=== PATIENT | male | born 1960 | race Caucasian/White ===

== ENCOUNTER 2025-08-17 06:13 | Day surgery (SDC) | payer BC, SELFPAY | END 2025-08-17 10:30 | disposition home or self-care (01) | LOC: GI 06:13 | PROVIDERS: ATTENDING PHYSICIAN Internal Medicine Gastroenterology | DX: Z12.11 Encounter for screening for malignant neoplasm of colon (principal); K64.8 Other hemorrhoids; K63.5 Polyp of colon | CPT/HCPCS: 45385; 88305 ==

== ENCOUNTER → 2025-10-02 09:56 | Outpatient (REF) | payer BC, SELFPAY | LOC: RAD 09:56 | PROVIDERS: ATTENDING PHYSICIAN Student in an Organized Health Care Education/Training Program; REFERRING PHYSICIAN Specialist | DX: M25.511 Pain in right shoulder (principal) | CPT/HCPCS: 73030 ==

== ENCOUNTER 2025-10-12 06:11 | Day surgery (SDC) | payer BC, SELFPAY ==
[2025-10-12] VITALS (12 sets, daily range): BP systolic 118–181; BP diastolic 74–103; BMI 25.7
--- NOTE | 2025-10-12 10:26 | HPS.HSE ---
Family Physician
-
Family Physician: NO INTERVIEW UNKNOWN
Chief Complaint
-
Admission after bleeding during colonoscopy
History of Present Illness
65 y/o male with past medical history of left-sided testicular cancer (status post orchiectomy many years ago), asthma (controlled without any medications) and hypertension, is being admitted after intraprocedural hemorrhage during colonoscopy after
resection of 25 mm polyp in the cecum on 10/12/25. When patient was seen in the same day surgery unit, he reported some nausea, but denied fever, chest pain, SOB, abdominal pain, or any other new symptoms or complaints.
Medical History
Past Medical History
Past Medical History: Reports Other (As per HPI above)
Past Surgical History: Reports Other (Orchiectomy)
Social History
Tobacco: Non-smoker
Alcohol: None
Drug: None
Family History
Family History: Not pertinent
Allergies / Home Medications
Allergies reflects when Allergies were last updated in [facility].
Home Medications with original date entered in [facility]
Allergy/Medication List:
Allergies
Allergy/AdvReac Type Severity Reaction Status Date / Time
No Known Allergies Allergy Verified 10/12/25 07:34
Home Medications
lisinopril 5 mg tablet 5 mg PO DAILY 10/12/25
Review of Systems
-
A 12 point ROS was completed and negative except as noted: Yes
Physical Exam
Vital Signs
Vital Signs
Temp Pulse Resp BP Pulse Ox
98.5 F 66 15 158/94 100
10/12/25 07:38 10/12/25 10:02 10/12/25 10:02 10/12/25 10:02 10/12/25 10:02
Physical Exam
General: No Apparent Distress, Comfortable and Conversant
HEENT: NormoCephalic and Moist mucous membranes
Respiratory: Clear
Cardiac: S1/S2 and Regular Rhythm
GI: Soft, Non Tender and Normal Bowel Sounds
Musculoskeletal: No Cyanosis and No Edema
Skin: Warm and Dry
Neuro: Awake, Alert and Nonfocal/grossly intact
Psych: Calm and Intact Judgment/Insight
Impression/Plan
-
Assessment/Plan
Status post intraprocedural hemorrhage during colonoscopy after resection of 25 mm polyp in the cecum on 10/12/25
-Hgb stable after procedure
-Per my [place] Text communication with Dr. Erazo, patient can be started on regular diet and oral medications
-Monitor CBC and vital signs
-Follow pathology results outpatient
-Per GI, repeat colonoscopy in 6 months for surveillance by the referring physician after piecemeal polypectomy.
Hypertensive Urgency
-BP in the SDS unit post-colonoscopy was 180s/90s
-Patient stated that he had not been taking his home Lisinopril for a few days because he forgot
-Resume Lisinopril and low sodium diet
Hemorrhoids
-Will need high fiber diet
History of left-sided testicular cancer (status post orchiectomy many years ago)
History of asthma (controlled without any medications)
-Stable; continue to monitor
DVT Prophylaxis: SCDs. No pharmacologic DVT prophylaxis given bleeding during colonoscopy.
Code Status: Full Code
[2025-10-12] MEDS: ZOFRAN 4 MG IV (11:17)
--- NOTE | 2025-10-12 13:20 | PTCARENOTE ---
Patient admitted from same day surgery post colonoscopy after he had some bleeding following polyp removal.The patient is alert and oriented.He denies any pain.Vital signs are stable.The patient is in his bed with the call vital in reach.His is
also at the bedside.
[2025-10-12 14:01] LABS: Hematocrit 39.3 % (39.0-52.0); Hemoglobin 13.5 g/dL (13.0-18.0); Mean Corp Hgb Conc. 34.4 g/dL (33.0-37.0); Mean Corpuscular Volume 94.9 fL (80.0-94.0); Platelet Count 172 10^3/uL (130-400); Red Cell Dist. Width 12.6 % (11.5-14.5)
--- NOTE | 2025-10-12 14:04 | CON.GI ---
Consultation
-
Date/Time Consultation Requested: 10-12-25
Date/Time Consultation Performed: 10-12-25
Requesting Provider: Dr. Luis M Fraga
Performing Provider: Dr. Darleen Fermin
Reason for Consultation: Post colonoscopy polypectomy, large polyp removal, bleeding
Medical History
Chief Complaint / HPI
Chief Complaint: Intraprocedural hemorrhage
History of Present Illness:
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
colonoscopy on 07-28-25 when he was found to have a 25 mm polyp in the cecum. He subsequently underwent therapeutic colonoscopy for polypectomy of the large cecal polyp on 10-12-25. During the procedure, there was significant hemorrhage following
endoscopic mucisal resection. Hemostasis was achieved with epinephrine, hot biopsy, coag grasper and four hemostatic clips. There was no bleeding at the end of the procedure, and he remained hemodynamically stable throughout. He was admitted for
overnight observation. He has had 1 bowel movement after the procedure which was bloody with some clots. H&H stable post-procedure. Of note, he came off warfarin a couple of months ago and is not on any anticoagulation.
Past Medical History
Past Medical History: Cancer (seminoma), HTN, Hypercholesterolemia and Other (extensive DVT suspected secondary to long-term testosterone use)
Past Surgical History: Urological (unilateral orchiectomy)
Social History
Tobacco: Non-Smoker
Alcohol: Occasional
Drug: None
Employment: Employed
Family History
Family History: Reviewed & Not Pertinent
Allergies / Home Medications
Allergy/AdvReac Type Severity Reaction Status Date / Time
No Known Allergies Allergy Verified 10/12/25 07:34
�Medication �Instructions �Recorded
lisinopril 5 mg tablet 5 mg PO DAILY 10/12/25
Review of Systems
-
History Source: Patient
All other systems: A 12 pt ROS was Negative except as stated above in HPI
Vital Signs
Temp Pulse Resp BP Pulse Ox
97.5 F 67 16 128/83 96
10/12/25 13:19 10/12/25 13:19 10/12/25 13:19 10/12/25 13:19 10/12/25 13:19
Physical Exam
Exam
General: No Apparent Distress and Comfortable
HEENT: Normocephalic, Anicteric, Moist Mucous Membranes and Atraumatic
Respiratory: Clear and Non Labored Respirations
Cardiac: S1/S2 and Regular Rhythm
GI: Soft, Non Tender, Non Distended and Normal Bowel Sounds; Negative Organomegaly
Genito-urinary: No Costovertebral Tender
Musculoskeletal: No Clubbing, No Cyanosis and No Edema
Neuro: Awake, Alert, Oriented and Nonfocal/Grossly Intact
Psych: Calm
Results
WBC 5.8 10^3/uL (4.8-10.8) 10/12/25 13:54
Hgb 13.5 g/dL (13.0-18.0) 10/12/25 13:54
Hct 39.3 % (39.0-52.0) 10/12/25 13:54
MCV 94.9 fL (80.0-94.0) H 10/12/25 13:54
Plt Count 172 10^3/uL (130-400) 10/12/25 13:54
Prior GI Procedures:
Endoscopy:
04-12-12:
- Normal esophagus.
- Bile gastritis. This was biopsied.
- Duodenal mucosal changes, suspicious for celiac disease. Biopsied.
- Biopsies were taken with a cold forceps for evaluation of celiac disease.
Colonoscopy:
04-12-12:
- The entire examined colon is normal.
- External and internal hemorrhoids.
- The examination was otherwise normal.
09-26-25:
- One 25 mm polyp in the cecum.
- One 5 mm polyp in the ascending colon, removed with a cold snare. Complete resection. Polyp tissue not retrieved.
- One 8 mm polyp in the ascending colon, removed with a hot snare. Resected and retrieved.
- Internal hemorrhoids.
10-12-25:
- Hemorrhoids found on perianal exam.
- The examined portion of the ileum was normal.
- One 25 mm polyp in the cecum. Resected and retrieved. Intraprocedural hemorrhage occurred, hemostasis achieved with epinephrine injection, coag grasper and hot biopsy coagulation. Treated with argon plasma coagulation (APC). Clips were
placed.
- Mucosal resection was performed. Resection was complete, and retrieval was complete.
- Non-bleeding internal hemorrhoids.
Assessment / Plan
-
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
colonoscopy on 07-28-25 when he was found to have a 25 mm polyp in the cecum. He subsequently underwent therapeutic colonoscopy for polypectomy of the large cecal polyp on 10-12-25. During the procedure, there was significant hemorrhage following
endoscopic mucosal resection. Hemostasis was achieved with epinephrine, hot biopsy, coag grasper and four hemostatic clips. There was no bleeding at the end of the procedure, and he remained hemodynamically stable throughout. He was admitted for
overnight observation. He has had 1 bowel movement after the procedure which was bloody with some clots. H&H stable post-procedure. Of note, he came off warfarin a couple of months ago and is not on any anticoagulation.
Impression:
* Intraprocedural (colonoscopy) hemorrhage
* Large cecal poly (25 mm) s/p EMR
* First degree hemorrhoids
* Essential hypertension
* Hypercholesterolemia
* History of seminoma, s/p unilateral orchiectomy 1994
* History of extensive DVT, suspected secondary to chronic testosterone use, off anticoagulation (warfarin) since a couple of months ago
Recommendations:
- Admit overnight for observation.
- Clear liquids for now.
- Check H&H later today and CBC in AM.
- Follow pathology results as an outpatient.
- Follow-up colonoscopy in 6 months for surveillance.
-
-
Thank you for consultation and allowing me to participate in the patient's care. Please call the [facility] GI physician during the after hours with any questions or concerns.
[2025-10-12 14:36] LABS: ALT (SGPT) 21 U/L (0-50); AST (SGOT) 18 U/L (17-59); Albumin 4.0 g/dl (3.5-5.0); Alkaline Phosphatase 67 U/L (38-126); Blood Urea Nitrogen 19 mg/dl (9-20); Calcium 8.7 mg/dl (8.4-10.2); Carbon Dioxide 30 mmol/L (22-30); Chloride 105 mmol/L (98-107); Estimated Creatinine Clearance 77 ml/min; Glucose 114 mg/dl (70-99); Potassium 4.2 mmol/L (3.5-5.1); Sodium 140 mmol/L (135-145); Total Protein 6.7 g/dl (6.3-8.2); eGFR > 60.00
[2025-10-12] MEDS: ZESTRIL 5 MG PO (15:29)
[2025-10-12 21:11] LABS: Hematocrit 39.3 % (39.0-52.0); Hemoglobin 13.1 g/dL (13.0-18.0)
[2025-10-13 03:23] VITALS: BP 110/62
[2025-10-13 06:28] LABS: Hematocrit 37.3 % (39.0-52.0); Hemoglobin 13.0 g/dL (13.0-18.0); Mean Corp Hgb Conc. 34.9 g/dL (33.0-37.0); Mean Corpuscular Volume 95.6 fL (80.0-94.0); Platelet Count 165 10^3/uL (130-400); Red Cell Dist. Width 12.7 % (11.5-14.5)
[2025-10-13 06:55] LABS: Blood Urea Nitrogen 19 mg/dl (9-20); Calcium 8.6 mg/dl (8.4-10.2); Carbon Dioxide 30 mmol/L (22-30); Chloride 106 mmol/L (98-107); Estimated Creatinine Clearance 69 ml/min; Glucose 92 mg/dl (70-99); Magnesium 2.1 mg/dl (1.6-2.3); Potassium 4.7 mmol/L (3.5-5.1); Sodium 139 mmol/L (135-145); eGFR > 60.00
[2025-10-13 07:35] VITALS: BP 118/73
[2025-10-13] MEDS: ZESTRIL 5 MG PO (08:48)
--- NOTE | 2025-10-13 09:36 | W.PN.GI.CBS2 ---
Today's Communication / Plan
-
advanced diet
OK for ND
Assessment / Plan
-
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
colonoscopy on 07-28-25 when he was found to have a 25 mm polyp in the cecum. He subsequently underwent therapeutic colonoscopy for polypectomy of the large cecal polyp on 10-12-25. During the procedure, there was significant hemorrhage following
endoscopic mucosal resection. Hemostasis was achieved with epinephrine, hot biopsy, coag grasper and four hemostatic clips. There was no bleeding at the end of the procedure, and he remained hemodynamically stable throughout. He was admitted for
overnight observation. He has had 1 bowel movement after the procedure which was bloody with some clots. H&H stable post-procedure. Of note, he came off warfarin a couple of months ago and is not on any anticoagulation.
Impression:
* Intraprocedural (colonoscopy) hemorrhage
* Large cecal poly (25 mm) s/p EMR
* First degree hemorrhoids
* Essential hypertension
* Hypercholesterolemia
* History of seminoma, s/p unilateral orchiectomy 1994
* History of extensive DVT, suspected secondary to chronic testosterone use, off anticoagulation (warfarin) since a couple of months ago
Recommendations:
- No further bleeding overnight and hemoglobin remained stable
- Advanced diet
- Okay to [place] home today and follow-up with Dr. Montana and Dr. Erazo as outpatient for colonoscopy in 6 months
Subjective
Subjective
Date of Service: October 13, 2025
Hemoglobin remained stable, no further bleeding overnight, no abdominal pain
Objective
Data Reviewed
Laboratory Data:
Laboratory Results
10/13/25 06:03
10/13/25 06:03
Laboratory Results
Magnesium 2.1 mg/dl (1.6-2.3) 10/13/25 06:03
Total Bilirubin 0.3 mg/dl (0.2-1.3) 10/12/25 13:54
AST 18 U/L (17-59) 10/12/25 13:54
ALT 21 U/L (0-50) 10/12/25 13:54
Alkaline Phosphatase 67 U/L (38-126) 10/12/25 13:54
Vital Signs and I&O:
Vital Signs
Temp Pulse Resp BP Pulse Ox
97.7 F 68 16 118/73 94
10/13/25 07:35 10/13/25 07:35 10/13/25 07:35 10/13/25 07:35 10/13/25 07:35
I&O
10/12/25 10/13/25 10/14/25
06:59 06:59 06:59
Intake Total 920 / 920
Output Total 500 / 500
Balance 420 / 420
Physical Exam
Physical Exam
Cardiology: Normal Sinus Rhythm
Pulmonary: Clear
GI: Soft, Non Distended, Non Tender and Normal Bowel Sounds
[2025-10-13 11:20] VITALS: BP 129/81
--- NOTE | 2025-10-13 14:13 | W.PN.HOSP.TC ---
Today's Communication/Plan
-
Discharge today
Assessment / Plan
Assessment / Plan
Physical Exam
General: No Apparent Distress, Comfortable and Conversant
HEENT: Normocephalic and Moist mucous membranes
Respiratory: Clear
Cardiac: S1/S2 and Regular Rhythm
GI: Soft, Non Tender and Normal Bowel Sounds
Musculoskeletal: No Cyanosis and No Edema
Skin: Warm and Dry
Neuro: Awake, Alert and Nonfocal/grossly intact
Psych: Calm and Intact Judgment/Insight
Assessment/Plan
Status post intraprocedural hemorrhage during colonoscopy after resection of 25 mm polyp in the cecum on 10/12/25
-Hgb remains stable after procedure
-Follow pathology results outpatient
-Follow-up with Dr. Montana and Dr. Erazo as outpatient for colonoscopy in 6 months
Hypertensive Urgency
-BP in the SDS unit post-colonoscopy was 180s/90s
-Patient stated that he had not been taking his home Lisinopril for a few days because he forgot
-Resume Lisinopril and low sodium diet
-Blood pressure is much better now
Hemorrhoids
-High fiber diet along with low sodium
History of left-sided testicular cancer (status post orchiectomy many years ago)
History of asthma (controlled without any medications)
-Stable; continue to monitor
DVT Prophylaxis: SCDs. No pharmacologic DVT prophylaxis given bleeding during colonoscopy.
Code Status: Full Code
More than 30 minutes spent in discharge including
Final examination of the patient
Summarizing hospital stay
Instructions for continuing care to all relevant caregivers
Preparation of discharge records, prescriptions, and referral forms
Total time spent (in minutes): 35
Anticipated Discharge: Today
Subjective/Interval History
-
Date of Service: October 13, 2025
Patient was seen and examined. He had no bleeding overnight, and denied abdominal pain or any other new symptoms or complaints. He is looking forward to going home today.
Objective Data
-
Labs:
Laboratory Results
10/13/25
06:03
WBC 6.8
Hgb 13.0
Hct 37.3 L
Plt Count 165
Sodium 139
Potassium 4.7
Chloride 106
Carbon Dioxide 30
BUN 19
Creatinine 1.0
Glucose 92
Calcium 8.6
Vital Signs:
Vital Signs
Temp Pulse Resp BP Pulse Ox
97.9 F 72 16 129/81 98
10/13/25 11:20 10/13/25 11:20 10/13/25 11:20 10/13/25 11:20 10/13/25 11:20
I&O
10/12/25 10/13/25 10/14/25
06:59 06:59 06:59
Intake Total 920 / 920
Output Total 500 / 500
Balance 420 / 420
--- NOTE | 2025-10-13 14:49 | W.DCSUMMARY ---
Discharge Summary
Discharge Data
Date of Admission: 10/12/25
Date of Discharge: 10/13/25
Total time spent discharging patient (in min): 35
-
Pending Results: Yes
Additional Pending Results:
Colon biopsy results
Hospital Course
65 y/o male with past medical history of left-sided testicular cancer (status post orchiectomy many years ago), asthma (controlled without any medications) and hypertension, extensive DVT (no longer on anticoagulation) was admitted after
intraprocedural hemorrhage during colonoscopy after resection of 25 mm polyp in the cecum on 10/12/25. When patient was seen in the same day surgery unit, he reported some nausea, but denied fever, chest pain, shortness of breath, abdominal pain, or
any other new symptoms or complaints. His blood pressure was high with systolic blood pressure in the 180s mmHg, and patient reported that he had not taken his Lisinopril in several days. Patient's Lisinopril was resumed with good blood pressure
control. The next day he felt well. Gastroenterology followed patient during the hospital and mentioned that he was okay for discharge from their standpoint. His hemoglobin remained stable and he had no further bleeding.
Discharge Plan
-
Patient Disposition: Home (Routine Discharge)
Discharge Diagnosis/Procedures: Status post intraprocedural hemorrhage during colonoscopy after resection of 25 mm polyp in the cecum on 10/12/25
Hypertensive Urgency
Hypertension
Hyperlipidemia
Hemorrhoids
History of left-sided testicular cancer (status post orchiectomy many years ago)
History of seminoma, s/p unilateral orchiectomy 1994
History of asthma (controlled without any medications)
Intraprocedural (colonoscopy) hemorrhage
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
Condition: Good
Diet: Low Fat, Low Cholesterol, Low Sodium and 2 Gram Sodium
Additional Diets: Try to follow a high fiber diet
Activity: As tolerated
Activity Restrictions/Additional Instructions:
Try to consume a high fiber, low sodium diet
Follow-up with your outpatient primary care provider in 4 to 6 days
Measure your blood pressure at home at least once or twice per day
Follow-up biopsy results from colonoscopy on 10/12/25 (call your outpatient [facility] office for results in the next 5 to 7 days)
Follow-up with Dr. Montana and Dr. Erazo as outpatient for colonoscopy in 6 months
Referrals:
UNKNOWN,NO INTERVIEW [Family Provider]
Prescriptions:
Continued
lisinopril 5 mg Tablet
5 mg PO DAILY
Discharge Orders:
Discharge Patient (As Directed); Ordered 10/13/25
Ordered By: Luis M Fraga
Discharge Date and Time
Discharge Date/Time: 10/13/25 15:24
Print Language: K[place]AN[place]
[2025-10-13 15:14] VITALS: BP 126/87
[2025-10-13 18:41] LABS: Hepatitis C Antibody Negative (Negative)
== END 2025-10-13 15:24 | disposition home or self-care (01) ==
LOC: SDS 06:11
PROVIDERS: Student in an Organized Health Care Education/Training Program; ATTENDING PHYSICIAN Hospitalist; CONSULT PHYSICIAN Internal Medicine Gastroenterology
DX: D12.6 Benign neoplasm of colon, unspecified (principal); K64.0 First degree hemorrhoids; D12.0 Benign neoplasm of cecum
CPT/HCPCS: 45390; 80048; 80053; 83735; 85014; 85018; 85027; 86803; 88305

== ENCOUNTER → 2025-10-31 10:29 | Outpatient (REF) | payer BC, SELFPAY | LOC: RAD 10:29 | PROVIDERS: ATTENDING PHYSICIAN Specialist | DX: S05.50XA Penetrating wound with foreign body of unspecified eyeball, initial encounter (principal) | CPT/HCPCS: 70030 ==